=== PATIENT | female | born 2000 | race Caucasian/White ===

== ENCOUNTER → 2021-05-14 09:42 | Outpatient (CLI) | payer OTHER, MEDICAID, SELFPAY ==
[2021-05-14 10:12] LABS: Hemoglobin A1C% w Est Avg Glu 5.6 % (4.0-6.0)
[2021-05-14 11:25] LABS: Free T4, Direct Thyroxine 1.05 ng/dL (0.78-2.19)
[2021-05-14 11:39] LABS: Thyroid Stimulating Hormone 2.83 uIU/mL (0.47-4.68)
== END ==
PROVIDERS: PCP Pediatrics; Referring Provider Obstetrics & Gynecology; Visit Provider Obstetrics & Gynecology
DX: E28.2 Polycystic ovarian syndrome (principal)
CPT/HCPCS: 36415; 83036; 84439; 84443

== ENCOUNTER 2022-08-23 17:19 | Emergency (ER) | payer OTHER, MEDICAID, SELFPAY ==
[2022-08-23 17:28] VITALS: BP 145/67; PULSE 77; RESP 18; TEMP 36.6; O2SAT 97; BMI 33.4
[2022-08-23 18:10] LABS: Alanine Aminotransferase 23 IU/L (<35); Albumin 4.1 g/dL (3.5-5.0); Albumin Globulin Ratio 1.1 (1.0-2.8); Alkaline Phosphatase 72 U/L (38-126); Aspartate Aminotransferase 31 IU/L (14-36); BUN Creatinine Ratio 19.1 (6-22); Bilirubin Total 0.1 mg/dL (0.2-1.3); Blood Urea Nitrogen 13 mg/dL (7-17); Carbon Dioxide 24 mmol/L (22-32); Chloride 105 mmol/L (98-107); Estimated Glomerular Filt Rate > 60 mL/min (>60); Globulin 3.6 g/dL (1.7-4.1); Glucose 93 mg/dL (70-100); HEMOLYSIS < 15 (0-50); Potassium 3.9 mmol/L (3.4-5.1); Sodium 140 mmol/L (137-145); Total Protein 7.7 g/dL (6.3-8.2)
[2022-08-23 18:18] LABS: Add Manual Diff / Slide Review NO; Basophils Absolute Auto 100 /uL (0-100); Basophils Percent Auto 0.6 % (0-2); Eosinophils Absolute Auto 100 /uL (0-450); Eosinophils Percent Auto 1.1 % (2-4); Hematocrit 34.3 % (36-46); Hemoglobin 11.7 g/dL (12.0-16.0); Lymphocytes Absolute Auto 2600 /uL (1100-4500); Lymphocytes Percent Auto 25.4 % (25-40); Mean Corpuscular Hemoglobin 27.7 PG (26-34); Mean Corpuscular Volume 81.6 fL (80-100); Monocytes Absolute Auto 500 /uL (0-900); Neutrophils Absolute Auto 7000 /uL (1500-7000); Neutrophils Percent Auto 67.9 % (50-75); Platelet Count 395 X10^3/uL (150-400); Red Blood Cell Count 4.21 X10^6/uL (4.0-5.2); Red Cell Distribution Width 14.3 % (11.6-14.8); White Blood Cell Count 10.3 X10^3/uL (4.5-11.0)
--- NOTE | 2022-08-23 21:20 | ED_ITS ---
HPI - GI Bleed General Chief complaint: GI Bleed Stated complaint: GI bleed X 4 days, we3ak and dizzy Time Seen by Provider: 08/23/22 21:20 Source: patient Mode of arrival: Ambulatory Limitations: no limitations History of Present Illness HPI Narrative: 22-year-old female with rectal pain and bleeding for the past 4 days patient has had frequent diarrhea like stools no fevers or chills. No abdominal, back or flank pain. No nausea or vomiting. No blood other than when wiping and occasionally a little bit of blood just on the underwear. Patient states no vaginal bleeding. No dysuria, urgency or frequency. Patient states she does get periods twice monthly. She initially thought it was vaginal but then r ealized it was coming from the rectum. Patient has not had similar symptoms in the past. She is not any daily medications. No blood thinners. Has not had similar symptoms in the past. She is not had hard but has had some pain. Related Data Previous Rx's Medication Instructions Recorded hydrocortisone 1 %-pramoxine 1 % 1 applic MT TID-QID PRN 08/23/22 rectal foam (Proctofoam HC) hemorrhoids #10 grams Allergies Allergy/AdvReac Type Severity Reaction Status Date / Time No Known Drug Allergies Allergy Unverified 05/14/21 09:06 Review of Systems Review of Systems ROS Unobtainable: All systems reviewed & are unremarkable except as noted in HPI and below Patient History Social History Smoking Status: Never smoker Smoking Status: Never smoker alcohol intake frequency: holidays/special occasions only Substance Use Type: does not use Exam Narrative Exam Narrative: GENERAL: Alert and oriented x three, female in mild distress HEENT: Head normocephalic, atraumatic, EOMI, pupils reactive, face symmetric, moist mucous membranes NECK: Supple, full range of motion CARDIOVASCULAR: Regular rate and rhythm without murmurs, rubs or gallops. RESPIRATORY: Breath sounds equal bilaterally, no wheezes rales or rhonchi. ABDOMEN: Soft, nontender. Normoactive bowel sounds all 4 quadrants. No guarding or rebound, rigidity, no mass. On digital rectal exam, scant amount of bright red blood, stool occult positive. Patient has a small internal hemorrhoid which is mildly tender. It is not thrombosed on from what I can palpate on exam. No mass or other changes appreciated. : No CVA tenderness EXTREMITIES: Normal range of motion, no clubbing or edema. Neurovascularly intact NEUROLOGICAL: Cranial nerves II through XII grossly intact. Moving all extremities SKIN: Warm, dry, no petechiae, no rashes or lesions. Initial Vital Signs Initial Vital Signs: Vital Signs Temperature 98 F 08/23/22 17:28 Pulse Rate 77 08/23/22 17:28 Respiratory Rate 18 08/23/22 17:28 Blood Pressure 145/67 H 08/23/22 17:28 Pulse Oximetry 97 08/23/22 17:28 Oxygen Delivery Method 08/23/22 17:28 Course Orders Ordered: ED Orders 08/23/22 17:34 EKG-12 Lead Stat 08/23/22 17:46 Complete Blood Count AUTO DIFF Stat Comprehensive Metabolic Panel Stat Vital Signs Vital signs: Vital Signs - 8 hr 08/23/22 21:55 Pulse Rate 78 Respiratory Rate 18 Blood Pressure 130/72 Pulse Oximetry 98 Oxygen Delivery Method Room Air MDM - GI Bleed Lab Data Result diagrams: 08/23/22 17:46 08/23/22 17:46 Labs: Lab Results 08/23/22 08/23/22 Range/Units 17:46 17:46 WBC 10.3 (4.5-11.0) X10^3/uL RBC 4.21 (4.0-5.2) X10^6/uL Hgb 11.7 L (12.0-16.0) g/dL Hct 34.3 L (36-46) % MCV 81.6 (80-100) fL MCH 27.7 (26-34) PG MCHC 34.0 (30-36) % RDW 14.3 (11.6-14.8) % Plt Count 395 (150-400) X10^3/uL Neut % (Auto) 67.9 (50-75) % Lymph % (Auto) 25.4 (25-40) % [place] % (Auto) 5.0 (3-14) % Eos % (Auto) 1.1 L (2-4) % Baso % (Auto) 0.6 (0-2) % Neut # (Auto) 7000 (9818-6223) /uL Lymph # (Auto) 2600 (0644-0602) /uL [place] # (Auto) 500 (0-900) /uL Eos # (Auto) 100 (0-450) /uL Baso # (Auto) 100 (0-100) /uL Sodium 140 (137-145) mmol/L Potassium 3.9 (3.4-5.1) mmol/L Chloride 105 (98-107) mmol/L Carbon Dioxide 24 (22-32) mmol/L BUN 13 (7-17) mg/dL Creatinine 0.68 (0.52-1.04) mg/dL Estimated GFR > 60 (>60) mL/min BUN/Creatinine Ratio 19.1 (6-22) Glucose 93 (70-100) mg/dL Calcium 9.0 (8.4-10.2) mg/dL Total Bilirubin 0.1 L (0.2-1.3) mg/dL AST 31 (14-36) IU/L ALT 23 (<35) IU/L Alkaline Phosphatase 72 (38-126) U/L Total Protein 7.7 (6.3-8.2) g/dL Albumin 4.1 (3.5-5.0) g/dL Globulin 3.6 (1.7-4.1) g/dL Albumin/Globulin Ratio 1.1 (1.0-2.8) MDM Narrative Medical decision making narrative: 22-year-old female, discussed she is anemic at 11 but has reassuring vitals, unknown what her normal baseline is she also has twice monthly periods. She did have a small hemorrhoid on exam and I suspect this is the source of her rectal bleeding. Patient and I discussed trying Proctofoam she is had more diarrhea like stools for a couple days this is likely irritating the area so discussed some bulky stool forming foods and ways to treat and need for follow-up. Discharge Plan Departure Patient Disposition: Home Clinical Impression: Rectal bleeding Instructions: DI for Rectal Bleeding Activity Restrictions/Additional Instructions: On exam you do have a small hemorrhoid I believe this is the source of your bleeding today. If you are continuing to have small amounts of painless bleeding for long periods of time I would recommend a colonoscopy outpatient. I would encourage bulky, high-fiber foods. You can use Proctofoam 3-4 times daily as needed. Prescription sent to [facility] in [place]. Please return if rapidly worsening symptoms, new abdominal, back flank pain, persistent vomiting, fevers, increasing amounts of bleeding with large clots and persistent bleeding or other new or concerning changes. Prescriptions: New Proctofoam HC 1-1 % foam 1 applic MT TID-QID PRN (Reason: hemorrhoids) Qty: 10 0RF Referrals: Kesha Casanova MD [Primary Care Provider] - Visit Report Forms: Patient Portal/API
[2022-08-23 21:55] VITALS: BP 130/72; PULSE 78; RESP 18; O2SAT 98
== END 2022-08-23 22:00 | disposition home or self-care (01) ==
PROVIDERS: Emergency Medicine; Emergency Provider Emergency Medicine; PCP Pediatrics
DX: K62.5 Hemorrhage of anus and rectum (principal); R19.7 Diarrhea, unspecified
CPT/HCPCS: 80053; 85025; 99281; 99283

== ENCOUNTER 2022-09-02 16:00 | Emergency (ER) | payer OTHER, MEDICAID, SELFPAY ==
[2022-09-02 16:07] VITALS: BP 119/79; PULSE 96; RESP 20; TEMP 36.6; O2SAT 98
--- NOTE | 2022-09-02 16:11 | DI.CT.S_ITS ---
PROCEDURE: CT FACIAL BONES WO CON INDICATIONS: struck in face during sports TECHNIQUE: Noncontrast 2.5 mm thick axial images acquired from the mandible through the frontal sinuses, with coronal and sagittal reformatting. For radiation dose reduction, the following was used: automated exposure control, adjustment of mA and/or kV according to patient size. COMPARISON: None. The comparison list may be incomplete. FINDINGS: Image quality: Excellent. Bones and teeth: There is inward displacement at the tip of the nasal bones suspicious for fracture (series 2, image 74). The nasal septum is intact. Orbital lopez are intact. Sinus lopez show no fracture or deformity. Visualized portions of the mandible demonstrate no fractures or subluxation. Zygomatic arches are intact. Pterygoid plates are intact. Visualized portions of the skull base and auditory canals are intact. Sinuses: Mild maxillary sinus mucosal thickening bilaterally. Paranasal sinuses are aerated, without fluid levels or mucoceles. Mastoid air cells are aerated. Soft tissues: No edema, masses, or fluid collections. No enlarged lymph nodes. No soft tissue lacerations or debris. Vascular: Visualized vascular structures appear normal in the absence of contrast. Bony vascular foramina and canals are intact. IMPRESSION: 1. Suspect minimally displaced nasal bone fracture. 2. Mild maxillary sinus mucosal thickening bilaterally. The preliminary result was discussed with Dr. Dale. Dictated by: Traci Brown M.D. on 09/02/2022 at 18:09 Approved by: Traci Brown M.D. on 09/03/2022 at 11:11
[2022-09-02 18:54] VITALS: BP 136/75; PULSE 86; O2SAT 97
--- NOTE | 2022-09-02 20:27 | ED_ITS ---
HPI - Head Injury <Yesica Cook PA-C - Last Filed: 09/02/22 20:32> General Chief complaint: Head Injury Stated complaint: possible broken nose Time Seen by Provider: 09/02/22 17:21 Source: patient Mode of arrival: Ambulatory History of Present Illness HPI Narrative: 22-year-old female presents to the ED status post a nose injury sustained prior to arrival. Patient states she was playing basketball with the bunch of guys, when she was struck in the nose accidentally, causing her nose to deviate towards the right. Patient also experienced a nosebleed at the time. Patient was able to move her nose towards the center successfully. Bleeding was controlled with pressure. Patient endorses being able to breathe comfortably. Patient complains of soreness of the nose, maxilla and upper lip. No loss of consciousness. Patient is not on blood thinners. Related Data Previous Rx's Medication Instructions Recorded hydrocortisone 1 %-pramoxine 1 % 1 applic [place] TID-QID PRN 08/23/22 rectal foam (Proctofoam HC) hemorrhoids #10 grams Allergies Allergy/AdvReac Type Severity Reaction Status Date / Time No Known Drug Allergies Allergy Unverified 05/14/21 09:06 Review of Systems <Yesica Cook PA-C - Last Filed: 09/02/22 20:32> Review of Systems ROS Unobtainable: All systems reviewed & are unremarkable except as noted in HPI and below Constitutional Constitutional: Denies chills, Denies fatigue, Denies fever(s), Denies frequent falls, Denies lethargy and Denies weakness Eyes Eyes: Denies change in vision, Denies eye discharge, Denies irritation and Denies loss of vision ENT Ears, Nose, Mouth, and Throat: Denies change in voice, Denies dizziness, Reports epistaxis, Reports nasal trauma, Denies neck pain, Denies sore throat and Denies throat swelling Cardiovascular Cardiovascular: Denies chest pain, Denies irregular heart rhythm, Denies lightheadedness, Denies palpitations, Denies dyspnea, Denies dyspnea on exertion and Denies orthopnea Respiratory Respiratory: Denies cough, Denies dyspnea, Denies dyspnea on exertion and Denies wheezing Gastrointestinal Gastrointestinal: Denies abdominal pain, Denies change in bowel habits, Denies diarrhea, Denies nausea and Denies vomiting Genitourinary Genitourinary: Denies hematuria, Denies flank pain, Denies urinary incontinence and Denies urinary urgency Musculoskeletal Musculoskeletal: Denies back pain, Denies muscle weakness, Denies neck pain, Denies numbness and Denies tingling Integumentary/Breasts Skin/Breast: Denies pruritus, Denies erythema, Denies rash and Denies wounds Neurologic Neurologic: Denies behavioral changes, Denies confusion, Denies dizziness, Denies frequent falls, Denies loss of vision, Denies numbness, Denies tingling and Denies weakness Psychiatric Psychiatric: Denies anxiety, Denies behavioral changes, Denies confusion, Denies depression, Denies homicidal ideation and Denies suicidal ideation Endocrine Endocrine: Denies fatigue, Denies flushing and Denies palpitations Hematologic/Lymphatic Hematologic/Lymphatic: Denies easy bruising Allergic/Immunologic Allergic/Immunologic: Denies urticaria, Denies throat swelling and Denies wheezing Patient History <Yesica Cook PA-C - Last Filed: 09/02/22 20:32> Social History Smoking Status: Never smoker Smoking Status: Never smoker alcohol intake frequency: holidays/special occasions only Substance Use Type: does not use Exam <Yesica Cook PA-C - Last Filed: 09/02/22 20:32> Narrative Exam Narrative: Const General:?cooperative, healthy appearing and comfortable [facility] Head:?normal to inspection Ears:?hearing grossly normal bilaterally Nose:? Nose appears to be very mildly swollen, red, but appears to have been successfully reduced by the patient. No septal hematomas on exam. No epistaxis during ED exam. Airway is patent. Patient is breathing comfortably. Face and sinus:?normal facial exam and sinuses nontender Mouth:?oral mucosae normal Throat:?posterior oropharynx normal Eyes General:?appearance normal, both eyes and all related structures Neck Neck:?normal visual inspection and no lymphadenopathy noted Resp Effort & Inspection:?normal respiratory effort Auscultation:?clear to auscultation bilaterally Cardio Rate:?regular rate Rhythm:?regular rhythm Neuro General:?patient alert, patient awake and patient oriented x3 Initial Vital Signs Initial Vital Signs: Vital Signs Temperature 97.9 F 09/02/22 16:07 Pulse Rate 96 H 09/02/22 16:07 Respiratory Rate 20 09/02/22 16:07 Blood Pressure 119/79 09/02/22 16:07 Pulse Oximetry 98 09/02/22 16:07 Oxygen Delivery Method 09/02/22 16:07 <DO Martha Castañeda Last Filed: 09/03/22 07:17> Initial Vital Signs Initial Vital Signs: Vital Signs Temperature 97.9 F 09/02/22 16:07 Pulse Rate 96 H 09/02/22 16:07 Respiratory Rate 20 09/02/22 16:07 Blood Pressure 119/79 09/02/22 16:07 Pulse Oximetry 98 09/02/22 16:07 Oxygen Delivery Method 09/02/22 16:07 Course <Yesica Cook PA-C - Last Filed: 09/02/22 20:32> Orders Ordered: Discontinued Medications Ketorolac Tromethamine (Ketorolac 30 Mg/Ml Vial) 30 mg IM NOW ONE Stop: 09/02/22 18:32 Vital Signs Vital signs: Vital Signs - 8 hr 09/02/22 16:07 09/02/22 18:54 Temperature 97.9 F Pulse Rate 96 H 86 Respiratory Rate 20 Blood Pressure 119/79 136/75 Pulse Oximetry 98 97 Oxygen Delivery Method Room Air Room Air <DO Martha Castañeda Last Filed: 09/03/22 07:17> Orders Ordered: Discontinued Medications Ketorolac Tromethamine (Ketorolac 30 Mg/Ml Vial) 30 mg IM NOW ONE Stop: 09/02/22 18:32 Vital Signs Vital signs: Vital Signs - 8 hr 09/02/22 16:07 09/02/22 18:54 Temperature 97.9 F Pulse Rate 96 H 86 Respiratory Rate 20 Blood Pressure 119/79 136/75 Pulse Oximetry 98 97 Oxygen Delivery Method Room Air Room Air MDM - Head Injury <JARRET Lopez Last Filed: 09/02/22 20:32> Lab Data Labs: Point of Care Testing Test Results Negative MDM Narrative Medical decision making narrative: 22-year-old female presents to the ED status post a nose injury sustained prior to arrival. CT facial bones obtained. Radiologist called Dr. Dale to inform him that there is a very mildly displaced nasal fracture, no other acute findings. There is some technical difficulties in downloading the report to the EMR, which is being addressed. Findings discussed with patient. Patient agrees to follow-up with ENT in 6-10 days. ED return precautions discussed with patient. Patient verbalized understanding. <Mani Dale DO - Last Filed: 09/03/22 07:17> Lab Data Labs: Point of Care Testing Test Results Negative Discharge Plan Departure Patient Disposition: Home Clinical Impression: Closed fracture nasal bone Instructions: DI for Nose Fracture Activity Restrictions/Additional Instructions: You were evaluated in the ED today for an injury to your nose. Your CT showed a very mildly displaced nose fracture, and does not require any intervention at this point. You may continue to take ibuprofen or Tylenol to reduce the pain and swelling. Please follow-up with ENT in 6-10 days. You may call [facility] at [phone] to schedule an appointment. Please return to the ED if your swelling worsens and you have trouble breathing, you have an uncontrollable nosebleed. Prescriptions: No Action Proctofoam HC 1-1 % foam 1 applic [place] TID-QID PRN (Reason: hemorrhoids) Qty: 10 0RF Referrals: Kesha Casanova MD [Primary Care Provider] - Visit Report Forms: Patient Portal/API <Mani Dale DO - Last Filed: 09/03/22 07:17> Cosign ED Attending Cosignature Attestation: Dr Dale Co-Sign Statement: I was available for consultation during this patient's emergency department visit. This chart is signed by myself for administrative purposes only. I did not have direct contact with this patient during this visit. They were seen independently by the APC.
== END 2022-09-02 20:52 | disposition home or self-care (01) ==
PROVIDERS: Emergency Provider Student in an Organized Health Care Education/Training Program; PCP Pediatrics
DX: S02.2XXA Fracture of nasal bones, initial encounter for closed fracture (principal); W21.9XXA Striking against or struck by unspecified sports equipment, initial encounter; Y93.67 Activity, basketball
CPT/HCPCS: 70486; 81025; 99283

== ENCOUNTER 2024-03-22 21:08 | Emergency (ER) | payer OTHER, SELFPAY ==
[2024-03-22] VITALS (9 sets, daily range): BP systolic 113–130; BP diastolic 56–80; PULSE 61–86; RESP 18–19; TEMP 36.2; O2SAT 99–100; BMI 40.7
--- NOTE | 2024-03-22 21:47 | ED_ITS ---
HPI - Nausea/Vomiting/Diarrhea General Chief complaint: Nausea/Vomiting/Diarrhea Stated complaint: 10 weeks , can't keep anything down Time Seen by Provider: 03/22/24 21:28 Source: patient Mode of arrival: Ambulatory History of Present Illness HPI Narrative: at 10 weeks gestational age presents by private vehicle for nausea and vomiting in early . Patient states that for the last 2 weeks she has been able to keep anything down and she feels very fatigued. Has been given both Reglan and Zofran by OBGYN, however these are not controlling her symptoms. Denies abdominal pain, vaginal bleeding, loss of fluids. Related Data Previous Rx's Medication Instructions Recorded hydrocortisone 1 %-pramoxine 1 % 1 applic [place] TID-QID PRN 08/23/22 rectal foam (Proctofoam HC) hemorrhoids #10 grams Allergies Allergy/AdvReac Type Severity Reaction Status Date / Time No Known Drug Allergies Allergy Unverified 05/14/21 09:06 Review of Systems Review of Systems Narrative: See HPI Patient History Social History Smoking Status: Never smoker Smoking Status: Never smoker alcohol intake frequency: holidays/special occasions only Substance Use Type: does not use Exam Initial Vital Signs Initial Vital Signs: Vital Signs Pulse Rate 73 03/22/24 21:15 Respiratory Rate 18 03/22/24 21:15 Blood Pressure 127/80 03/22/24 21:15 Pulse Oximetry 100 03/22/24 21:15 Oxygen Delivery Method Room Air 03/22/24 21:15 Const: Awake, alert, no acute distress, nontoxic appearing Mouth: Mildly dry mucous membranes Cardiac: regular rate, regular rhythm RESP: unlabored, clear bilaterally, no wheezing GI: Soft, nontender, nondistended, no rebound, no guarding Skin: Warm, Dry, intact, no rashes Neuro: AO x3, CN II-XII grossly intact, moves all extremities Course Orders Ordered: ED Orders 03/22/24 21:45 CBC Auto Diff [Complete Blood Count AUTO DIFF] Stat CMP [Comprehensive Metabolic Panel] Stat Discontinued Medications Diphenhydramine HCl (Diphenhydramine 50 Mg/Ml Vial) 50 mg IV NOW ONE Stop: 03/22/24 21:29 Last Admin: 03/22/24 21:57 Dose: 50 mg Documented By: ELDER Sodium Chloride (Normal Saline 0.9%) 1,000 mls @ 1,000 mls/hr IV BOLUS ONE Stop: 03/22/24 22:27 Last Infusion: 03/22/24 22:41 Dose: Infused Documented By: Admin: 03/22/24 21:57 Dose: 1,000 mls/hr Documented By: ELDER Metoclopramide HCl (Metoclopramide 10 Mg/2 Ml Inj) 10 mg IV NOW ONE Stop: 03/22/24 21:29 Last Admin: 03/22/24 21:57 Dose: 10 mg Documented By: ELDER Vital Signs Vital signs: Vital Signs - 8 hr 03/22/24 22:00 03/22/24 22:00 03/22/24 22:13 Pulse Rate 64 86 Respiratory Rate 19 Blood Pressure 126/73 Pulse Oximetry 100 100 Oxygen Delivery Method Room Air Room Air 03/22/24 22:13 03/22/24 22:30 03/22/24 22:31 Pulse Rate 67 66 Respiratory Rate Blood Pressure 130/80 Pulse Oximetry 100 100 Oxygen Delivery Method 03/22/24 22:31 03/22/24 23:00 03/22/24 23:42 Pulse Rate 81 75 Respiratory Rate 18 18 Blood Pressure 113/56 L 126/69 Pulse Oximetry 100 99 Oxygen Delivery Method MDM - Nausea/Vomiting/Diarrhea Lab Data 03/22/24 21:45 03/22/24 21:45 Labs: Lab Results 03/22/24 Range/Units 21:45 WBC 10.4 (4.5-11.0) X10^3/uL RBC 4.32 (4.0-5.2) X10^6/uL Hgb 11.9 L (12.0-16.0) g/dL Hct 35.4 L (36-46) % MCV 81.9 (80-100) fL MCH 27.6 (26-34) PG MCHC 33.6 (30-36) % RDW 14.1 (11.6-14.8) % Plt Count 348 (150-400) X10^3/uL Neut % (Auto) 71.7 (50-75) % Lymph % (Auto) 22.3 L (25-40) % [place] % (Auto) 4.4 (3-14) % Eos % (Auto) 1.0 L (2-4) % Baso % (Auto) 0.6 (0-2) % Neut # (Auto) 7400 H (8081-8156) /uL Lymph # (Auto) 2300 (3109-0535) /uL [place] # (Auto) 500 (0-900) /uL Eos # (Auto) 100 (0-450) /uL Baso # (Auto) 100 (0-100) /uL Sodium 136 L (137-145) mmol/L Potassium 3.9 (3.4-5.1) mmol/L Chloride 107 (98-107) mmol/L Carbon Dioxide 23 (22-32) mmol/L BUN 9 (7-17) mg/dL Creatinine 0.60 (0.52-1.04) mg/dL Estimated GFR > 60 (>60) mL/min BUN/Creatinine Ratio 15.0 (6-22) Glucose 90 (70-100) mg/dL Calcium 9.1 (8.4-10.2) mg/dL Total Bilirubin 0.3 (0.2-1.3) mg/dL AST 27 (14-36) IU/L ALT 13 (<35) IU/L Alkaline Phosphatase 57 (38-126) U/L Total Protein 7.4 (6.3-8.2) g/dL Albumin 4.1 (3.5-5.0) g/dL Globulin 3.3 (1.7-4.1) g/dL Albumin/Globulin Ratio 1.2 (1.0-2.8) Urine Dip Bedside Urine Glucose Negative Bedside Urine Bilirubin - Negative Bedside Urine Ketone - Negative Urine Specific [place] 1.025 Bedside Urine Occult Blood - Negative Bedside Urine pH 6 Bedside Urine Protein - Negative Bedside Urine Urobilinogen - Negative Bedside Urine Nitrite - Negative Bedside Urine Leukocytes - Negative Esterase MDM Narrative Medical decision making narrative: Nausea and vomiting in first-trimester . Patient labs negative for electrolyte derangements. Urinalysis negative for infection. Patient given Reglan and Benadryl as well as IV fluids with improvement in symptoms. Patient is subsequently able to tolerate p.o. and requesting to go home. Patient states she has OBGYN follow up later this week. Discharge Plan Departure Patient Disposition: Home Clinical Impression: Nausea and vomiting in Instructions: DI for Vomiting -- Adult Activity Restrictions/Additional Instructions: Continue to use the Zofran and Reglan as prescribed previously. Follow up as scheduled with your OBGYN. Prescriptions: No Action Proctofoam HC 1-1 % foam 1 applic [place] TID-QID PRN (Reason: hemorrhoids) Qty: 10 0RF Referrals: Kesha Casanova MD [Primary Care Provider] - Stand Alone Forms: Patient Portal/API
[2024-03-22] MEDS: diphenhydrAMINE 50 MG/ML VIAL IV (21:57)
[2024-03-22] MEDS: METOCLOPRAMIDE 10 MG/2 ML INJ IV (21:57)
[2024-03-22] MEDS: SODIUM CHLORIDE 0.9% 1,000 ML 1000 ML IV (21:57)
[2024-03-22 22:35] LABS: Add Manual Diff / Slide Review NO; Basophils Absolute Auto 100 /uL (0-100); Basophils Percent Auto 0.6 % (0-2); Eosinophils Absolute Auto 100 /uL (0-450); Hematocrit 35.4 % (36-46); Hemoglobin 11.9 g/dL (12.0-16.0); Lymphocytes Absolute Auto 2300 /uL (1100-4500); Lymphocytes Percent Auto 22.3 % (25-40); Mean Corpuscular HGB Conc 33.6 % (30-36); Mean Corpuscular Hemoglobin 27.6 PG (26-34); Mean Corpuscular Volume 81.9 fL (80-100); Monocytes Absolute Auto 500 /uL (0-900); Monocytes Percent Auto 4.4 % (3-14); Neutrophils Absolute Auto 7400 /uL (1500-7000); Neutrophils Percent Auto 71.7 % (50-75); Platelet Count 348 X10^3/uL (150-400); Red Blood Cell Count 4.32 X10^6/uL (4.0-5.2); Red Cell Distribution Width 14.1 % (11.6-14.8); White Blood Cell Count 10.4 X10^3/uL (4.5-11.0)
[2024-03-22 22:40] LABS: Alanine Aminotransferase 13 IU/L (<35); Albumin 4.1 g/dL (3.5-5.0); Albumin Globulin Ratio 1.2 (1.0-2.8); Alkaline Phosphatase 57 U/L (38-126); Aspartate Aminotransferase 27 IU/L (14-36); Bilirubin Total 0.3 mg/dL (0.2-1.3); Blood Urea Nitrogen 9 mg/dL (7-17); Calcium 9.1 mg/dL (8.4-10.2); Carbon Dioxide 23 mmol/L (22-32); Chloride 107 mmol/L (98-107); Estimated Glomerular Filt Rate > 60 mL/min (>60); Globulin 3.3 g/dL (1.7-4.1); Glucose 90 mg/dL (70-100); HEMOLYSIS < 15 (0-50); Potassium 3.9 mmol/L (3.4-5.1); Sodium 136 mmol/L (137-145); Total Protein 7.4 g/dL (6.3-8.2)
== END 2024-03-22 23:49 | disposition home or self-care (01) ==
PROVIDERS: Emergency Provider Emergency Medicine; PCP Pediatrics
DX: O21.9 Vomiting of pregnancy, unspecified (principal); Z3A.10 10 weeks gestation of pregnancy
CPT/HCPCS: 80053; 81003; 85025; 96361; 96374; 96375; 99283; J1200; J2765

== ENCOUNTER → 2024-06-02 | Outpatient (CLI) | payer OTHER, SELFPAY ==
--- NOTE | 2024-06-02 15:11 | DI.US.S_ITS ---
PROCEDURE: US OB >= 14 WEEKS FETUS INDICATIONS: ANATOMY SCAN OUTSIDE/PRIOR DATING DATA: Last menstrual period (LMP): 01/13/2024. LMP-based estimated date of delivery (AIMEE): 10/19/2024. First dating scan (date and location): Unknown. Estimated date of delivery (AIMEE) from first dating scan: Unknown. The calculations are made using the clinical AIMEE of 10/19/2024. TECHNIQUE: Real-time scanning was performed of the fetus, with image documentation and biometric measurements. Endovaginal scanning: Not performed COMPARISON: None. FINDINGS: General: A single living intrauterine gestation is present. Presentation: Vertex. Placenta: Placental position is anterior , without previa. Amniotic fluid index: 20.9 cm, normal range is 5-24 cm. Single deepest vertical pocket is 6.1 cm. heart rate: 147 beats per minute. Maternal cervical canal: 3.5 cm long. Normal lower limit is 2.5 cm. biometrics: Biparietal diameter: 5.5 cm Head circumference: 19.6 cm Abdominal circumference: 17.4 cm Femur length: 3.8 cm Clinically estimated gestational age: 20 weeks, 1 day Composite gestational age from present scan: 22 weeks, 1 day Estimated weight and percentile: 482 grams, percentile not calculated Anatomic survey: Neuro: Ventricles are not well visualized. Cisterna magna is normal at 3-11 mm. Cerebellum is normal in size and morphology. Nuchal skin fold: Normal at less than 6 mm between 14-21 weeks gestational age. Face: Nose and lips are within normal limits. Facial profile not realized Spine: No evidence for spina bifida. Heart: 4-chambered heart is present, with normal left ventricular outflow tract. Right ventricular outflow tracts not well visualized. Diaphragm: Diaphragm is intact. Stomach: Left-sided stomach is present. Kidneys: No hydronephrosis. Normal is less than 5 mm in 2nd trimester, less than 7 mm in 3rd trimester. Cord: 3-vessel cord has orthotopic insertion. Bladder: Normal in size. Extremities: All 4 extremities identified. IMPRESSION: Single intrauterine gestation in vertex presentation with estimated age of 22 weeks, 1 day based on biometry. anatomic survey demonstrates no gross abnormalities. Facial profile, lateral ventricles, and right ventricular outflow tract are not well visualized. Recommend short interval follow up. Approved by: Sara Arnold M.D.,Ph.D. on 06/09/2024 at 21:53
== END ==
LOC: US 15:10
PROVIDERS: PCP Pediatrics; Referring Provider Nurse Practitioner Obstetrics & Gynecology; Visit Provider Nurse Practitioner Obstetrics & Gynecology
DX: Z34.02 Encounter for supervision of normal first pregnancy, second trimester (principal); Z3A.22 22 weeks gestation of pregnancy
CPT/HCPCS: 76811

== ENCOUNTER → 2024-06-28 10:37 | Outpatient (CLI) | payer OTHER, SELFPAY ==
--- NOTE | 2024-06-28 10:40 | DI.US.S_ITS ---
PROCEDURE: US OB FOLLOW UP INDICATIONS: FOLLOW UP ANATOMY AND GROWTH OUTSIDE/PRIOR DATING DATA: Last menstrual period (LMP): 01/13/2024 LMP-based estimated date of delivery (AIMEE): 10/07/2024 First dating scan (date and location): 03/02/2024 Estimated date of delivery (AIMEE) from first dating scan: 10/13/2024 The calculations are made using the AIMEE of 10/12/2024 per ordering provider. TECHNIQUE: Real-time scanning was performed of the fetus, with image documentation and biometric measurements. Endovaginal scanning: Performed for better visualization of the cervix. COMPARISON: [facility], , OB >= 14 WEEKS FETUS, 06/02/2024, 15:20. FINDINGS: General: A single living intrauterine gestation is present. Presentation: Vertex Placenta: Placental position is anterior, without previa. Amniotic fluid index: 15.7 cm, normal range is 5-24 cm. Single deepest vertical pocket is 4.8 cm. heart rate: 143 beats per minute. Maternal cervical canal: 4.5 cm long. Normal lower limit is 2.5 cm. biometrics: Biparietal diameter: 6.5 cm, 26 weeks 2 days Head circumference: 23.4 cm, 25 weeks 3 days Abdominal circumference: 22.2 cm, 27 weeks 5 days Femur length: 4.6 cm, 25 weeks 3 days Clinically estimated gestational age: 24 weeks 6 days Composite gestational age from present scan: 26 weeks 0 days Estimated weight and percentile: 890 g, 90th percentile Other: Normal facial profile. Normal appearance of the lateral ventricles and right ventricular outflow tract. Placental cord insertion is seen approximately 1.6 cm from the margin of the placenta. Previously seen posterior uterine fibroids are not definitely visualized on the current exam. IMPRESSION: 1. Single live intrauterine . Estimated weight is at the 90th percentile for gestational age. 2. facial profile, lateral ventricles, and right ventricular outflow tract are within normal limits. 3. Suspected marginal placental cord insertion. Approved by: Ephraim Bernal M.D. on 06/29/2024 at 13:16
== END ==
PROVIDERS: PCP Pediatrics; Referring Provider Nurse Practitioner Obstetrics & Gynecology; Visit Provider Nurse Practitioner Obstetrics & Gynecology
DX: Z34.02 Encounter for supervision of normal first pregnancy, second trimester (principal); Z68.42 Body mass index [BMI] 45.0-49.9, adult; Z3A.26 26 weeks gestation of pregnancy
CPT/HCPCS: 76816; 76817

== ENCOUNTER 2024-08-02 08:46 | Outpatient (CLI) | payer OTHER, SELFPAY ==
--- NOTE | 2024-08-02 08:49 | DI.US.S_ITS ---
PROCEDURE: US OB LIMITED INDICATIONS: cervical length OUTSIDE/PRIOR DATING DATA: Last menstrual period (LMP): 01/13/2024. LMP-based estimated date of delivery (AIMEE): 10/07/2024. First dating scan (date and location): 03/02/2024. Estimated date of delivery (AIMEE) from first dating scan: 10/13/2024. The calculations are made using the clinical AIMEE of 10/12/2024. TECHNIQUE: Real-time scanning was performed of the fetus, with image documentation. COMPARISON: [facility], , OB FOLLOW UP, 06/28/2024, 10:59. FINDINGS: A single living intrauterine gestation is present. Presentation: Breech. Placenta: Placental position is anterior, without previa. Amniotic fluid index: 20.6 cm, normal range is 5-24 cm. Single deepest vertical pocket is 7.5 cm. heart rate: 143 beats per minute. Maternal cervical canal: 5.0 cm long. Normal lower limit is 2.5 cm. Clinically estimated gestational age: 29 weeks 6 days IMPRESSION: Single live intrauterine with gestational age today of 29 weeks 6 days. Cervical length 5 cm. Dictated by: Jeanie Ayers M.D. on 08/02/2024 at 10:54 Approved by: Jeanie Ayers M.D. on 08/02/2024 at 10:55
[2024-08-02 10:05] LABS: Appearance Urine UA CLEAR; Bilirubin Urine UA NEGATIVE (NEGATIVE); Color Urine UA YELLOW; Glucose Urine UA NEGATIVE (Negative); Ketones Urine UA NEGATIVE (NEGATIVE); Leukocyte Esterase Urine UA NEGATIVE (NEGATIVE); Nitrite Urine UA NEGATIVE (Negative); Occult Blood Urine UA NEGATIVE (Negative); Protein Urine UA NEGATIVE (Negative); Urobilinogen Urine UA 0.2 E.U./dL (0.2)
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
[2024-08-02 10:34] LABS: Bacteria Urine None Seen; Culture Indicated Urine Cult Not Indicated; RBC Urine None Seen (0-5/HPF); Squamous Epithelial Cell Urine None Seen (0-5/HPF); Urine Volume 10mL (spun); WBC Urine None Seen (0-5/HPF)
== END 2024-08-02 10:02 | disposition home or self-care (01) ==
LOC: LABOR 09:07 → OB 08-03 10:27
PROVIDERS: Advanced Practice Midwife; PCP Pediatrics; Referring Provider Nurse Practitioner Obstetrics & Gynecology; Visit Provider Nurse Practitioner Obstetrics & Gynecology
DX: O26.893 Other specified pregnancy related conditions, third trimester (principal); N85.8 Other specified noninflammatory disorders of uterus; Z3A.29 29 weeks gestation of pregnancy
CPT/HCPCS: 59025; 76815; 81001; G0378; G0379

== ENCOUNTER 2024-08-28 09:07 | Observation (INO) | payer OTHER, SELFPAY ==
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
== END 2024-08-28 11:35 | disposition home or self-care (01) ==
PROVIDERS: Admitting Provider Advanced Practice Midwife; PCP Pediatrics; Referring Provider Advanced Practice Midwife; Visit Provider Advanced Practice Midwife
DX: O36.8130 Decreased fetal movements, third trimester, not applicable or unspecified (principal); O26.893 Other specified pregnancy related conditions, third trimester; R10.9 Unspecified abdominal pain; Z3A.33 33 weeks gestation of pregnancy
CPT/HCPCS: 59025; 84112; G0378; G0379

== ENCOUNTER 2024-09-07 19:54 | Outpatient (CLI) | payer OTHER, SELFPAY | END 2024-09-07 21:10 | disposition home or self-care (01) | LOC: OB 09-08 10:50 | PROVIDERS: PCP Pediatrics; Referring Provider Nurse Practitioner Obstetrics & Gynecology; Visit Provider Obstetrics & Gynecology | DX: O42.913 Preterm premature rupture of membranes, unspecified as to length of time between rupture and onset of labor, third trimester (principal); Z3A.34 34 weeks gestation of pregnancy | CPT/HCPCS: 59025; 84112; G0378; G0379 ==

== ENCOUNTER 2024-10-06 07:32 | Observation (INO) | payer OTHER, SELFPAY ==
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
[2024-10-06] MEDS: miSOPROStoL 25 MCG TABLET 50 MCG PO (08:20)
[2024-10-06 09:11] VITALS: BP 130/64; PULSE 83; RESP 16; TEMP 36.7
[2024-10-06 09:14] LABS: Add Manual Diff / Slide Review NO; Basophils Absolute Auto 100 /uL (0-100); Basophils Percent Auto 0.6 % (0-2); Eosinophils Absolute Auto 100 /uL (0-450); Eosinophils Percent Auto 0.5 % (2-4); Hematocrit 33.1 % (36-46); Hemoglobin 10.8 g/dL (12.0-16.0); Lymphocytes Absolute Auto 1700 /uL (1100-4500); Lymphocytes Percent Auto 15.6 % (25-40); Mean Corpuscular HGB Conc 32.7 % (30-36); Mean Corpuscular Hemoglobin 25.6 PG (26-34); Mean Corpuscular Volume 78.2 fL (80-100); Monocytes Absolute Auto 300 /uL (0-900); Neutrophils Absolute Auto 8700 /uL (1500-7000); Neutrophils Percent Auto 80.3 % (50-75); Platelet Count 405 X10^3/uL (150-400); Red Blood Cell Count 4.23 X10^6/uL (4.0-5.2); Red Cell Distribution Width 15.2 % (11.6-14.8); White Blood Cell Count 10.8 X10^3/uL (4.5-11.0)
[2024-10-06] MEDS: ESCITALOPRAM 10 MG TABLET 2.5 MG PO ×2 (10:05→21:15)
[2024-10-06] MEDS: ONDANSETRON 4 MG/2 ML INJ IV ×2 (11:45→21:00)
--- NOTE | 2024-10-06 12:15 | PM.OBPNLAB ---
Date/Time Date Patient Seen: 10/06/24 Time Patient Seen: 12:15 Pain Control Pain control: tolerating well Comments: Has been feeling regular, mild contractions. Some stronger than other, but none like last night with the Zazueta balloon. Feeling good FM with lots of normal discharge. No LOF and o vaginal bleeding. Has been up and walking around and continues a normal PO intake of food and fluids. Family remains supportive at her side. VS: BP 125/70, HR 83bpm, T 36.6C Temporal Pelvic Exam Dilation (cm): 4 Effacement (%): 75 station: -3 Amniotic membrane status: Intact Comments: soft, posterior Contractions Monitor mode: External Contraction frequency (min): 2 Contraction duration (min): 1 Contraction pattern: Regular Contraction intensity: Mild Status status: Category l Heart Rate Baseline: 130 Monitor Accelerations: Present Monitor Decelerations: Absent Monitor Variability: Moderate Assessment and Plan Assessment: induction ongoing Plan: other (begin pitocin) Comments: Given additional effacement and frequency of contractions, will begin pitocin titrating per protocol. Reassess in 4 hours. Repeat CE after 2 hours of strong contractions.
[2024-10-06] MEDS: OXYTOCIN PREMIX 30 UNIT/500 ML PLAST..BAG IV (12:24)
[2024-10-06] MEDS: LACTATED RINGERS 1,000 ML 100 ML IV (12:24)
--- NOTE | 2024-10-06 16:25 | PM.OBPNLAB ---
Date/Time Date Patient Seen: 10/06/24 Time Patient Seen: 16:25 Pain Control Pain control: tolerating well Comments: Leela continues to cope well with cramping and discomfort. Her friends are helping her laugh thorough it. Her contractions have started to reach an intensity that is more like last night when her Zazueta balloon was falling out. She has been up and moving around and changing positions while in bed resting; she also took a short nap. She has been eating and drinking per her normal. VS: BP 108/64, HR 80bpm, T 36.4C Temporal Pelvic Exam Dilation (cm): 4.5 Effacement (%): 75 station: -3 Amniotic membrane status: Intact Comments: CE deferred, not yet in active labor Contractions Monitor mode: External (Tarah) Pitocin rate (mU/min): 10 Contraction frequency (min): 2 (1-3) Contraction duration (min): 1 (30sec-1min) Contraction pattern: Irregular Contraction intensity: Moderate Status status: Category ll Heart Rate Baseline: 130 Monitor Accelerations: Present Monitor Decelerations: Variable (rare) Monitor Variability: Moderate Assessment and Plan Assessment: induction ongoing Plan: continuous present management Comments: A: Early Labor Intact membranes Cat 2 HR- overall reassuring P: Continue titrating pitocin per protocol Continuous monitoring Reassess in 4 hours or sooner, PRN
[2024-10-06 19:19] VITALS: BP 130/64
--- NOTE | 2024-10-06 20:56 | PM.OBPNLAB ---
Date/Time Date Patient Seen: 10/06/24 Time Patient Seen: 20:30 Pain Control Pain control: tolerating well Comments: Leela continues to cope with intensifying contraction well with support and encouragement from her friends and mother who remain at bedside. Her contractions have increased in intensity since around 1830. She has not had any leaking or gush of water. She had what she described as grape jelly come out of her vagina when she peed. She continues to feel good movement. Using shared decision making and benefits/alternatives, Leela decides she would like a cervical exam. Pelvic Exam Dilation (cm): 5 Effacement (%): 80 station: -3 Amniotic membrane status: Intact Comments: VS: BP:117/74 HR: 101 T: 36.0 C Contractions Monitor mode: External ([place]) Pitocin rate (mU/min): 18 Contraction frequency (min): 2 (1-3) Contraction duration (min): 1 (30sec -1 min) Contraction pattern: Irregular Contraction intensity: Moderate Status status: Category l Heart Rate Baseline: 135 Monitor Accelerations: Present Monitor Decelerations: Absent Monitor Variability: Moderate Assessment and Plan Assessment: induction ongoing Plan: continuous present management Comments: A: Induction ongoing Cat 1 HR P: Continue titrating pitocin per protocol, notify provider if pitcoin dose reaches 30 mu/min Continuous monitoring Reassess in 4 hours or sooner, PRN Will AROM at next check.
[2024-10-07] MEDS: ONDANSETRON 4 MG/2 ML INJ IV (01:50)
--- NOTE | 2024-10-07 02:46 | PM.OBPNLAB ---
Date/Time Date Patient Seen: 10/07/24 Time Patient Seen: 01:55 Pain Control Pain control: tolerating well Comments: Leela continues to move frequently, using the ball and position changes in bed. She felt like contractions were increasing in intensity so she got in the tub; this provided good relief for her. She continues to hydrate and rest when she needs to. Leela requests a cervical exam. After discussing results of the CE and risks/benefits/alternatives of stopping pitocin, Leela decides to take a break from the pitocin. She would like to get some sleep and continue with the induction as soon as it is reasonable. VS: BP:113/60 HR: 66 T: 35.7 Pelvic Exam Dilation (cm): 4 Effacement (%): 60 station: -3 Amniotic membrane status: Intact Contractions Monitor mode: External ([place]ah) Pitocin rate (mU/min): 24 Contraction frequency (min): 2 (1-3) Contraction duration (min): 1 (30 sec -1min) Contraction pattern: Irregular Contraction intensity: Moderate Status status: Category l Heart Rate Baseline: 115 Monitor Accelerations: Present Monitor Decelerations: Absent Monitor Variability: Moderate Assessment and Plan Assessment: induction ongoing Plan: other Comments: A: Pitocin currently ineffective Not in active labor Cat 1 HR P: Ineffective contractions with increasing pitocin rate (max does 24mu/min), stop pitocin and allow for therapeutic rest. Return to cervical ripening with misoprostol overnight. Anticipate another 2-4 doses. Continuous monitoring Reassess in 8 hours or sooner, PRN
[2024-10-07] MEDS: miSOPROStoL 25 MCG TABLET 50 MCG PO ×3 (03:00→11:17)
[2024-10-07] MEDS: ESCITALOPRAM 10 MG TABLET 2.5 MG PO ×2 (09:18→20:57)
--- NOTE | 2024-10-07 11:26 | PM.OBPNLAB ---
Date/Time Date Patient Seen: 10/07/24 Time Patient Seen: 11:26 Pain Control Pain control: tolerating well Comments: Leela was able to get 4-5 hours of sleep and feels refreshed with a positive attitude. Desires to keep trying interventions to achieve induction of labor. Family was also able go sleep and everyone is back and supportive. VS: BP 120/65, HR 92bpm, T 35.9C Temporal Pelvic Exam Dilation (cm): 4 Effacement (%): 60 station: -3 Amniotic membrane status: Intact Comments: head is slightly more engaged in the pelvis, no other appreciable changes. Contractions Monitor mode: External ([place]ah) Contraction frequency (min): 3 (1-4) Contraction duration (min): 1 (30-60 seconds) Contraction pattern: Irregular Contraction intensity: Mild Status status: Category l Heart Rate Baseline: 130 Monitor Accelerations: Present Monitor Decelerations: Absent Monitor Variability: Moderate Assessment and Plan Assessment: induction ongoing Plan: continuous present management Comments: 2 more doses of misoprostol Reassess in 8 hours or sooner, PRN
[2024-10-07] MEDS: OXYTOCIN PREMIX 30 UNIT/500 ML PLAST..BAG IV (15:32)
--- NOTE | 2024-10-07 15:37 | PM.OBPNLAB ---
Date/Time Date Patient Seen: 10/07/24 Time Patient Seen: 15:00 Pain Control Pain control: tolerating well Comments: Leela continues to labor well, walking and resting as she needs. She has also spent some time on the ball. Reflecting on her last 24+ hours, she describes a roller coaster of emotions: feeling as though she can't do this and then feeling very excited to meet and hold the baby. Right now she is feeling mentally prepared for stronger contractions. She has been feeling stronger contractions for the last 2 hours and would like a cervical exam. Her mother and friends continue to be helpful and supportive at the bedside. She has been eating, drinking, and voiding appropriately. No leaking or gush of fluid. She continues to feel good movement. BP:122/69 HR: 77 T:36.4C Pelvic Exam Dilation (cm): 5 Effacement (%): 75 station: -3 Amniotic membrane status: Intact Contractions Monitor mode: External ([place]) Contraction frequency (min): 1 (30 sec - 4 mins) Contraction duration (min): 1 (30sec - 1 min) Contraction pattern: Irregular Contraction intensity: Moderate Status status: Category ll Heart Rate Baseline: 130 Monitor Accelerations: Present Monitor Decelerations: Variable (rare) Monitor Variability: Moderate Assessment and Plan Assessment: induction ongoing Plan: other Comments: A: Early labor Cat 2 HR- overall reassuring P: Using shared decision making and discussion of risks/benifits/alternatives of a repeat dose of buccal misoprostol, vaginal metoprostol, and restarting pitocin, Leela decides she would like to restart pitocin. Restart Pitocin and titrate per protocol. Continuous monitoring. Reassess in 4 hours, or sooner, PRN.
--- NOTE | 2024-10-07 20:49 | PM.OBDS.1 ---
Discharge Providers Provider Date of admission: 10/06/24 07:32 Discharge Date: 10/07/24 Primary care physician: Kesha Casanova MD Discharge provider: Clarissa Barron CNM, ARNP Summary Hospital Course Date Patient Seen: 10/07/24 Time Patient Seen: 20:50 Diagnoses: Undelivered Unsuccessful induction of labor at 39 weeks Hospital Course: Misoprostol, pitocin, misoprostol, pitocin, no cervical change. Exam at 1945 10/07/24 3.5/80/-4. ANAND recommends patient discharge home and come back in 36 hours to continue induction of labor if not back with spontaneous labor between now and then. Pitocin discontinued. RNST after pitocin d/jennifer. Plan to return for IOL 10/09/24 am. Discharge Diagnosis (1) Supervision of normal first in third trimester: Status: Acute (2) BMI 39.0-39.9,adult: Status: Acute (3) Failed induction of labor, antepartum: Start Date: 10/06/24 Status: Acute Time Spent with Patient Time attestation: Total time spent providing and/or coordinating discharge services: Objective Labs 10/06/24 08:48 Exam Vital Signs (past 8 hours): 122/69 77 bpm 36.4 C Discharge Plan Discharge Plan Patient Disposition: Home Discharge orders & Medications Prescriptions: Continued Lexapro 2.5 mg tablet BID Follow up/Referrals: Kesha Casanova MD [Primary Care Provider] - Diet/Activity/Treatments Diet: Diet as Tolerated and Regular Visit Report/Discharge Packet Stand Alone Forms: Patient Portal/API, Stroke Signs & Symptoms Discharge Data Primary Care Provider: Kesha Casanova Attending Provider: Rea Epstein Admit Date/Time: 10/06/24 07:32
== END 2024-10-07 21:55 | disposition home or self-care (01) ==
PROVIDERS: Admitting Provider Nurse Practitioner Obstetrics & Gynecology; PCP Pediatrics; Referring Provider Nurse Practitioner Obstetrics & Gynecology; Visit Provider Nurse Practitioner Obstetrics & Gynecology
DX: O61.0 Failed medical induction of labor (principal); Z3A.39 39 weeks gestation of pregnancy
CPT/HCPCS: 36415; 59050; 59200; 85025; 86850; 86900; 86901; 96360; G0378; G0379; J2405; J2590

== ENCOUNTER 2024-10-08 08:27 | Inpatient (IN) | payer OTHER, SELFPAY ==
[2024-10-08] MEDS: LACTATED RINGERS 1,000 ML 100 ML IV (09:28)
[2024-10-08] MEDS: OXYTOCIN PREMIX 30 UNIT/500 ML PLAST..BAG IV (09:29)
[2024-10-08 09:34] LABS: Add Manual Diff / Slide Review NO; Basophils Absolute Auto 0 /uL (0-100); Basophils Percent Auto 0.4 % (0-2); Eosinophils Absolute Auto 100 /uL (0-450); Eosinophils Percent Auto 0.5 % (2-4); Hematocrit 32.3 % (36-46); Hemoglobin 10.6 g/dL (12.0-16.0); Lymphocytes Absolute Auto 1700 /uL (1100-4500); Lymphocytes Percent Auto 13.6 % (25-40); Mean Corpuscular HGB Conc 32.6 % (30-36); Mean Corpuscular Hemoglobin 25.3 PG (26-34); Mean Corpuscular Volume 77.4 fL (80-100); Monocytes Absolute Auto 400 /uL (0-900); Monocytes Percent Auto 3.6 % (3-14); Neutrophils Absolute Auto 9900 /uL (1500-7000); Neutrophils Percent Auto 81.9 % (50-75); Platelet Count 390 X10^3/uL (150-400); Red Blood Cell Count 4.17 X10^6/uL (4.0-5.2); Red Cell Distribution Width 14.8 % (11.6-14.8); White Blood Cell Count 12.1 X10^3/uL (4.5-11.0)
[2024-10-08 10:28] VITALS: BP 115/74
--- NOTE | 2024-10-08 11:52 | PM.OBPNLAB ---
Date/Time Date Patient Seen: 10/08/24 Time Patient Seen: 11:35 Pain Control Pain control: tolerating well Comments: Since SROM at 0530, her contractions have slowly increased in intensity. Standing at the bedside, breathing through and moaning with contractions. She's coping well, but surprised by how intense contractions are. Requesting a CE and considering an epidural. Family is supportive at her side. VS: BP 115/79, HR 75bpm, T 36.1C Temporal Pelvic Exam Dilation (cm): 4 Effacement (%): 70 station: -3 Amniotic membrane status: Leaking (clear) Contractions Monitor mode: External Pitocin rate (mU/min): 6 Contraction frequency (min): 3 Contraction duration (min): 1 Contraction pattern: Irregular Contraction intensity: Moderate Status status: Category l Heart Rate Baseline: 130 Monitor Accelerations: Present Monitor Decelerations: Absent Monitor Variability: Moderate Assessment and Plan Assessment: other (PROM, not yet in labor) Plan: continuous present management Comments: Continue pitocin, titrate per protocol. Labor support, PRN. Encouragement given and coping strategies discussed. Epidural when requested. Reassess in 4 hours or sooner, PRN.
--- NOTE | 2024-10-08 13:10 | PM.AN.REGBLK ---
Regional Block Pre-procedure Procedure: Continuous Lumbar Epidural for L&D Attending OB provider: Clarissa Barron PMH/ROS narrative: term labor, SROM this am after unsuccessful induction over the last 2 days. No medical or obstetric complications. BMI 40, anxiety controlled with lexapro. ASA Class: III Labs: Hct 32.3 % (36-46) L 10/08/24 09:15 Plt Count 390 X10^3/uL (150-400) 10/08/24 09:15 Medications: Current Medications Generic Name Dose Route Start Last Admin Trade Name Freq PRN Reason Stop Dose Admin Calcium Carbonate 1,000 mg 10/08/24 09:01 Calcium Carbonate 500 Mg Tab PO Q2HR PRN Dyspepsia Carboprost Tromethamine 250 mcg 10/08/24 09:01 Carboprost 250 Mcg/Ml Ampul IM Q90M PRN Bleeding Diphenhydramine HCl 25 mg 10/08/24 12:26 Diphenhydramine 50 Mg/Ml Vial IV Q10M PRN Pruritis Lactated Ringer's 1,000 mls @ 100 mls/hr 10/08/24 09:15 10/08/24 09:28 Lactated Ringers IV 10/08/24 19:14 100 mls/hr CONT SANTHOSH Administration Oxytocin/Lactated Ringer's 30 unit in 500 mls @ 200 mls/hr 10/08/24 09:01 Oxytocin Premix IV CONT PRN Bleeding Protocol Tranexamic Acid 1,000 mg/ 100 mls @ 600 mls/hr 10/08/24 09:01 Sodium Chloride IV NOW PRN Bleeding Oxytocin/Lactated Ringer's 30 unit in 500 mls @ 2 mls/hr 10/08/24 09:15 10/08/24 09:29 Oxytocin Premix IV 2 milliunit/min TITRATE SANTHOSH 2 mls/hr Administration Protocol 2 MILLIUNIT/MIN FENT 2MCG/ML BUPIV 0.125% EPI 200 mcg in 100 mls @ 6 mls/hr 10/08/24 12:30 Fentanyl/Bupiv/Ns 2mcg/Ml - 0.125% EPIDURAL CONT SANTHOSH Lidocaine HCl 20 ml 10/08/24 09:01 Lidocaine 1% 20 Ml INJ INTRA-OP PRN Post Delivery Methylergonovine Maleate 0.2 mg 10/08/24 09:01 Methylergonovine 0.2 Mg Tablet PO Q6HR PRN Heavy Bleeding Methylergonovine Maleate 0.2 mg 10/08/24 09:01 Methylergonovine 0.2 Mg/Ml Vial IM NOW PRN Bleeding Mineral Oil 30 ml 10/08/24 09:01 Mineral Oil 30 Ml Udc TOP PRN PRN Version Misoprostol 800 mcg 10/08/24 09:01 Misoprostol 200 Mcg Tablet MS NOW PRN Bleeding Misoprostol 400 mcg 10/08/24 09:01 Misoprostol 200 Mcg Tablet SL NOW PRN Bleeding Nalbuphine HCl 2.5 mg 10/08/24 12:26 Nalbuphine 20 Mg/Ml Ampul IV Q10M PRN Pruritis Naloxone HCl 0.2 mg 10/08/24 09:01 Naloxone 0.4 Mg/Ml Vial IV Q2MIN PRN Opiate Reversal Ondansetron HCl 4 mg 10/08/24 09:01 Ondansetron 4 Mg/2 Ml Inj IV Q4HR PRN Nausea And Vomiting Oxytocin 10 unit 10/08/24 09:01 Oxytocin 10 Unit/Ml Vial IM NOW PRN Bleeding Allergies: Allergies Allergy/AdvReac Type Severity Reaction Status Date / Time adhesive Allergy Mild Verified 10/08/24 12:28 lavender (Lavandula Allergy Unknown Verified 10/08/24 10:37 angustifolia) diphenhydramine AdvReac Mild panic Verified 10/08/24 10:37 attack Procedure Insertion date: 10/08/24 Insertion time: 12:48 Prep/Local: betadine x3 and 1% lidocaine Interspace: L34 Patient position: sitting Needle: 18 gauge Kinjaltead (CSE:27g Pencan through Hustead, clear CSF, 1mL 0.25% bupiv, MPF) Loss of resistance with: saline CAYETANO at (cm): 7 Catheter placed at SKIN (cm): 13 Catheter in SPACE (cm): 6 Insertion: No CSF, No Blood, No Paresthesia with insertion, No Paresthesia with injection and No Test dose reaction Initial Medications TEST DOSE time: 12:51 TEST DOSE: 1.5% lidocaine with epinephrine 1:200k (mL): 3 BOLUS DOSE time: 13:03 BOLUS DOSE (mL): 4 BOLUS DOSE med: other (infusate) Infusion INFUSION: 0.125% bupivacaine and with fentanyl 2 mcg/mL Initial rate (mL/hr): 10 Subsequent interventions: 1810: 5mL 0.25% bupiv for suprapubic pain with contractions. Good relief. Rate to 12mL/h. 0330: 2.5mL 0.25% as above. Pt desired smaller dose d/t emesis after previous. 0920: 3mL 2% chloroprocaine to assist with pushing 1000: 2mL 0.25% bupiv, 5mL clinician bolus from pump Post-procedure Anesthesia date START: 10/08/24 Anesthesia time START: 12:45 Anesthesia date END: 10/09/24 Anesthesia time END: 11:03 Post-procedure Anesthesia Assessment: Yes CV function: HR/BP stable, Yes Resp function: RR/sat/airway adequate, Yes Post-op hydration adequate, Yes Pain control adequate, Yes Nausea & vomiting absent, Yes Temperature > 36 C, Yes Mental status appropriate and No Anesthesia complications
[2024-10-08] MEDS: ESCITALOPRAM 10 MG TABLET 2.5 MG PO ×2 (14:50→21:30)
[2024-10-08] MEDS: ONDANSETRON 4 MG/2 ML INJ IV (18:28)
[2024-10-08] MEDS: FENT 2MCG/ML BUPIV 0.125% EPI 200 MCG/100 ML PLAST..BAG 6 MCG EPIDURAL (18:28)
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
--- NOTE | 2024-10-08 21:49 | P.PNOB_ITS ---
Date/Time Date Patient Seen: 10/08/24 Time Patient Seen: 21:00 Pain Control Pain control: epidural Comments: Leela continues to have good pain control with epidural. She is feeling some aches and pains in her back, hoping for position changes to help alleviate this. She is somewhat discouraged d by her cervical exam but is looking forward to getting some rest. Her mother, sister in law, and friend/dry cleaning machine operator are at bedside. She continues to have some emotional turmoil about meeting the baby. BP: 137/79 HR: 79 O2: 95% T: 36.2C Pelvic Exam Dilation (cm): 5 Effacement (%): 95 station: -2 Amniotic membrane status: Leaking (clear) Contractions Monitor mode: External Pitocin rate (mU/min): 12 Contraction frequency (min): 3 (1-3) Contraction duration (min): 1 (30-45 sec) Contraction pattern: Irregular Contraction intensity: Moderate Status status: Category l Heart Rate Baseline: 130 Monitor Accelerations: Present Monitor Decelerations: Absent Monitor Variability: Moderate Assessment and Plan Comments: A: SROM x 16 hours Early labor Cat 1 HR P: Continue pitocin augmentation Maternal temp q2 Continuous monitoring Reassess in 4 hours, or sooner PRN
[2024-10-08 22:03] VITALS: BP 115/79; PULSE 89; RESP 16; TEMP 36.1
--- NOTE | 2024-10-08 22:07 | PM.OBPNLAB ---
Date/Time Date Patient Seen: 10/08/24 Time Patient Seen: 16:30 Pain Control Pain control: epidural Comments: Leela is comfortable with epidural. Her parents and friend are with her; sisters are in the waiting room. She is somewhat disappointed she got an epidural but very happy she's able to rest. Pelvic Exam Dilation (cm): 4 Effacement (%): 95 station: -2 Amniotic membrane status: Leaking (clear) Comments: Anterior, tight ring at os. Vital Signs: BP: 133/67 HR: 77 bpm SpO2: 98% Temp: 98 F Contractions Contractions on admission: irregular Monitor mode: External Pitocin rate (mU/min): 12 Contraction frequency (min): 3 Contraction duration (min): 1 Contraction pattern: Irregular Contraction intensity: Moderate Status status: Category l Heart Rate Baseline: 125 Monitor Accelerations: Present Monitor Decelerations: Absent Monitor Variability: Moderate Assessment and Plan Comments: Term nullipara No antibiotics indicated Cat 1 HR SROM x 11 hour P: Continue pitocin augmentation Recommend frequent position changes and rest Continuous monitoring Reassess in 4 hours or sooner, PRN
[2024-10-09] MEDS: FENT 2MCG/ML BUPIV 0.125% EPI 200 MCG/100 ML PLAST..BAG 6 MCG EPIDURAL ×2 (01:15→07:58)
--- NOTE | 2024-10-09 01:26 | PM.OBPNLAB ---
Date/Time Date Patient Seen: 10/09/24 Time Patient Seen: 01:00 Pain Control Pain control: epidural Comments: Leela and her team are sleeping; she's currently placed in cowgirl positioning by the RN. BP: 130/68 - BPs are somwehat labile, with lowest today 113/56 and as high as 139/89 and 141/58. HR: 80 bpm Temp: 37 C SpO2 95% Pelvic Exam Dilation (cm): 8 Effacement (%): 95 station: -1 Amniotic membrane status: Leaking (clear) Contractions Monitor mode: External Pitocin rate (mU/min): 16 Contraction frequency (min): 3 (1-3) Contraction duration (min): 1 Contraction pattern: Regular Contraction intensity: Moderate Status status: Category ll Heart Rate Baseline: 125 Monitor Accelerations: Present Monitor Decelerations: Late Monitor Variability: Moderate Assessment and Plan Assessment: active labor Comments: at 39w3d ROM x 19 hours Afebrile GBS negative FHR Cat 2 Continue present management including continuous monitoring Anticipate NSVB.
[2024-10-09] MEDS: ONDANSETRON 4 MG/2 ML INJ IV ×3 (01:30→09:21)
--- NOTE | 2024-10-09 06:45 | PM.OBPNLAB ---
Date/Time Date Patient Seen: 10/09/24 Time Patient Seen: 06:00 Pain Control Pain control: epidural Comments: Leela is feeling an overwhelming urge to push. VS: BP: 124/67 HR: 79 bpm Temp: 37.7 C (at 0653) Pelvic Exam Dilation (cm): 9.5 (anterior lip) Effacement (%): 95 station: -1 Amniotic membrane status: Leaking (clear) Comments: Anterior lip reduced during pushing; complete dilation at 0632. Contractions Monitor mode: External Pitocin rate (mU/min): 10 Contraction frequency (min): 3 (1-3) Contraction duration (min): 1 Contraction pattern: Regular Contraction intensity: Moderate Status status: Category ll Heart Rate Baseline: 135 Monitor Accelerations: Present Monitor Decelerations: Variable Monitor Variability: Moderate Assessment and Plan Comments: in 2nd stage labor GBS neg Afebrile FHR Cat 2 Continue pushing while confirming anterior lip remains high. Anticipate NSVB.
[2024-10-09] MEDS: ACETAMINOPHEN 325 MG TABLET 975 MG PO (09:21)
[2024-10-09] MEDS: MINERAL OIL 30 ML UDC TOP (10:30)
[2024-10-09] MEDS: OXYTOCIN PREMIX 30 UNIT/500 ML PLAST..BAG 200 UNIT IV (11:00)
[2024-10-09] MEDS: LIDOCAINE 1% 20 ML INJ (11:30)
[2024-10-09] MEDS: TRANEXAMIC ACID 1,000 MG in SODIUM CHLORIDE 0.9% 100 ML 600 MG IV (12:15)
--- NOTE | 2024-10-09 12:18 | P.PCNOB_ITS ---
Events: Labor Induction, Labor Augmentation and Prolonged Rupture Membrane Labor & Delivery Delivery date: 10/09/24 Delivery Time: 10:48 Intrapartal Events: Prolonged Labor > 20 hours and Prolonged 2nd Stage > 2.5 hours Cervical ripening method: per Zazueta bulb protocol (and buccal misoprostol) Induction method: per pitocin protocol Delivery augmentation: pitocin Delivery monitor: external FHT Route of delivery: Episiotomy description: None L&D Laceration Description: Perineal - 1st Degree and Vaginal - 1st Degree Delivery repair: chromic (3-0) Quantitative Blood Loss: 667 Anesthesia Type: Epidural Narrative: Leela requested elective IOL which was started with balloon catheter at 38w6d and was admitted at 39w0d; discharged at 39w1d due to failed induction. Readmitted with PROM at 39w2d and delivered at 39w3d with pitocin augmentation and epidural for pain relief. When she was feeling strong urge to push, anterior lip reduced with contractions and actively pushed for 4 hours and 26 minutes. She requested extra doses of medication toward the end of pushing due to upper and lower back pain; these extra doses provided good relief. Maternal te mperature remained afebrile throughout labor and HR tracing remained Cat 2 or 1 without tachycardia. Leela pushed a variety of positions with encouragement and coaching from mother, friends, RN, SNM and CNM. OB back up was notified at 3 hours of active pushing of long 2nd stage, large baby, and possibility of use of vacuum, however, no vacuum was needed. After three last big pushes, baby's head emerged and restituted MICHAELLE. Difficulty delivering anterior shoulder, but posterior shoulder delivered easily with gentle traction by SNM and with one more push the entire body delivered as Leela reached down to help catch her baby with SNM. Single live baby boy was placed on the maternal abdomen for drying and stimulation; terminal meconium noted. Apgars 3/6/9. After cessation of pulsing, cord was double clamped by SNNeo and cut by Leela. Cord blood was collected and pitocin was increased to 333 mL/hr. First chux pad was removed and weight for QBL. Placenta emerged, Schultze presentation, with gentle downward traction by SNM and single maternal push. Placenta was apparently intact with a 3 vessel cord. Inspection of vagina and perineum revealed bilateral vaginal sulcus lacerations and perineal laceration; repaired with 3-0 chromic and good approximation and homeostasis was achieved. Toward the end of the repair, increased uterine bleeding was noted so TXA was given. QBL 667mL. Leela and baby remained skin to skin and was initiated in the first hour of life. Leela and baby boy, Mitchell, were stable when CNM left the room. Baby 1: gender: Male Presentation: vertex Position: Left Occiput Anterior Placenta delivery description: Expressed Cord Vessel Description: 3 Vessels score (1 min): 3 score (5 min): 6 score (10 min): 9 weight: 4.509 kg Plan for aftercare: Routine care
[2024-10-09] MEDS: KETOROLAC 30 MG/ML VIAL IV (12:30)
[2024-10-09] MEDS: WITCH HAZEL/GLYCERIN PADS 1 EACH TOP (16:23)
[2024-10-09] MEDS: ACETAMINOPHEN 325 MG TABLET 650 MG PO ×2 (16:24→23:03)
[2024-10-09] MEDS: DERMOPLAST SPRAY 20% 60 ML 1 SPRAY TOP (16:24)
[2024-10-09] MEDS: LANOLIN OINT 7 GM 1 APPLIC TOP (16:24)
[2024-10-09] MEDS: IBUPROFEN 600 MG TABLET PO (23:03)
[2024-10-10] MEDS: ACETAMINOPHEN 325 MG TABLET 650 MG PO ×2 (03:54→10:09)
[2024-10-10] MEDS: IBUPROFEN 600 MG TABLET PO ×2 (04:43→12:01)
[2024-10-10] MEDS: ESCITALOPRAM 10 MG TABLET 2.5 MG PO (10:10)
--- NOTE | 2024-10-10 10:47 | PM.OBDS.1 ---
Discharge Providers Provider Date of admission: 10/08/24 08:27 Discharge Date: 10/10/24 Primary care physician: Kesha Casanova MD Consults: 10/08/24 09:01 Consult to Anesthesiology Urgent Comment: Consulting Provider: Kashmir Villaseñor Reason for consultation: Epidural 10/10/24 16:04 Consult to Cell Efficiency Supervisor Routine Comment: Discharge provider: Clarissa Barron CNM, ARNP Summary Hospital Course Date Patient Seen: 10/10/24 Time Patient Seen: 10:47 Diagnoses: O80 Hospital Course: Leela was admitted for PROM and augmented with pitocin for long first and second stages resulting in NSVB. 1st degree perineal and bilateral sulcus lacerations repaired. . Peripartum Data Delivery Method: Natural Vaginal Laceration Description: Perineal - 1st Degree and Vaginal - 1st Degree (bilateral sulcus lacerations) Procedures: Lacerations repaired with 3-0 vicryl in usual fashion. [place] 1: Gender: Male Disposition of : home Discharge Diagnosis (1) Delivery of : Status: Acute (2) BMI 39.0-39.9,adult: Status: Acute (3) Supervision of normal first in third trimester: Status: Acute (4) Breast feeding status of mother: Status: Acute Status at Discharge Cognitive/behavioral status at discharge: oriented and calm Functional status at discharge: independent ambulation Overall status at discharge: patient is progressing back to baseline Time Spent with Patient Time attestation: Total time spent providing and/or coordinating discharge services: Time spent: Less than 30 minutes Specific discharge activities: discharge teaching Objective Labs 10/08/24 09:15 Exam Vital Signs (past 8 hours): BP: 124/84 HR: 95 bpm RR: 14/bpm Temp: 97.9 F Other: Fundus firm at U-2, midline. Lochia scant Perineum intact with minimal edema Discharge Plan Discharge Plan Patient Disposition: Home Discharge orders & Medications Prescriptions: Continued Lexapro 2.5 mg tablet See Rx Instructions .ROUTE .COMPLEX Rx Instructions: per MD order Follow up/Referrals: Kesha Casanova MD [Primary Care Provider] - Clarissa Barron CNM, STEPHANIE [Advanced Mask Inspector] - 2 Weeks (2 and 6 weeks as scheduled with [facility] [place]) Diet/Activity/Treatments Diet: Diet as Tolerated Diet comment: increase fiber, fluid to assist with healing and stool, iron & protein food Activity: low wright x 2 weeks Cold/Heat Therapy: as needed, consider sitz bath for perineal healing Skin/Wound/Dressing Care Skin care: gentle, usual care Report to your healthcare provider any signs of infection, such as:: increased pain, unusual drainage and unusual redness Visit Report/Discharge Packet Stand Alone Forms: Patient Portal/API, Stroke Signs & Symptoms Discharge Data Primary Care Provider: Kesha Casanova
[2024-10-10 13:50] VITALS: BP 120/58; PULSE 76; RESP 18; TEMP 36.2
[2024-10-10 14:10] VITALS: BP 115/79; PULSE 89; RESP 16; TEMP 36.1
== END 2024-10-10 14:25 | disposition home or self-care (01) | DRG 807 ==
PROVIDERS: Admitting Provider Advanced Practice Midwife; PCP Pediatrics; Referring Provider Advanced Practice Midwife; Visit Provider Advanced Practice Midwife
DX: O42.02 Full-term premature rupture of membranes, onset of labor within 24 hours of rupture (principal); Z37.0 Single live birth; O63.0 Prolonged first stage (of labor); O76 Abnormality in fetal heart rate and rhythm complicating labor and delivery; O70.0 First degree perineal laceration during delivery; Z3A.39 39 weeks gestation of pregnancy; O61.0 Failed medical induction of labor
CPT/HCPCS: 36415; 59050; 59200; 84112; 85025; 86850; 86900; 86901; 96360; G0378; A9270; G0379; J1885; J2405; J2590